=== PATIENT | male | born 1980 | race Caucasian/White ===

== ENCOUNTER → 2020-12-26 | Emergency (ER) | payer BC ==
[~2020-12-26] VITALS: Ht 185.4 cm; Wt 122.5 kg
[2020-12-26 22:17] VITALS: Ht 185.4 cm; Wt 122.5 kg
[2020-12-26 23:36] VITALS: BP 92/57
== END ==
LOC: ED 22:00
DX: S93.401A Sprain of unspecified ligament of right ankle, initial encounter (principal); I10 Essential (primary) hypertension; X50.1XXA Overexertion from prolonged static or awkward postures, initial encounter; Y93.01 Activity, walking, marching and hiking; Y92.89 Other specified places as the place of occurrence of the external cause; Y99.8 Other external cause status